=== PATIENT | female | born 2000 | race Caucasian/White ===

== ENCOUNTER 2025-09-20 08:08 | Inpatient (IN) ==
[2025-09-20] MEDS ORDERED: OXYTOCIN 30 UNITS/NSS 30 UNITS/500 ML BAG IV PRN (08:33)
[2025-09-20] MEDS ORDERED: CALCIUM CARBONATE 500 MG CHEWABLE TAB PO PRN (08:33)
[2025-09-20] MEDS ORDERED: LIDOCAINE 1% LOCAL 20 ML VIAL INFIL PRN (08:33)
[2025-09-20 09:01] LABS: Hematocrit (blood only) 39.6 % (37.0-47.0); Hemoglobin 13.6 g/dL (12.0-16.0); Mean Corpuscular Hemoglobin 30.0 pg (25.0-34.0); Mean Corpuscular Volume 87.4 fL (80.0-100.0); Platelet Count 207 K/uL (130-400); RDW Standard Deviation 42.0 fL (36.4-46.3); Red Blood Count 4.53 M/uL (4.20-5.40); White Blood Count 11.40 K/ul (4.8-10.8)
[2025-09-20] MEDS: LACTATED RINGER'S 1,000 ML IV PRN (11:00)
[2025-09-20] MEDS: OXYTOCIN 30 UNITS/NSS 30 UNITS/500 ML BAG IV PRN (11:01)
--- NOTE | 2025-09-20 17:45 | History & Physical Report ---
Date of Service September 20, 2025 Assessment & Plan (1) Supervision of normal first : Plan: Poornima is a 25-year-old currently at 37 weeks 1 day gestational age presents with premature rupture of membranes. No significant tractions on tocometer at time of presentation which was approximately 5 to 6 hours post rupture. Discussed findings and recommendation to start induction of labor with oxytocin. Discussed risk benefits the patient was agreeable. GBS negative. Epidural per request. Vitals within normal limits. (2) PROM (premature rupture of membranes): Admission and Anticipated Discharge Date Admission Date: September 20, 2025 History of Present Illness Primary Care Provider: Richard Noguera is a 25-year-old currently at 37 weeks 1 day gestational age presents with spontaneous rupture of membranes not in labor. Patient denying any regular or painful contractions or vaginal bleeding. Noted good movement. uncomplicated to date Allergies Allergy/AdvReac Type Severity Reaction Status Date / Time No Known Allergies Allergy Verified 09/18/25 10:03 Home Medications Medication Instructions Recorded Confirmed Type docusate sodium [Colace] PO 02/22/25 09/18/25 History ferrous sulfate PO 02/22/25 09/18/25 History 21-iron fu-folic acid PO 02/22/25 09/18/25 History [ Complete] escitalopram oxalate 10 mg tablet 10 mg PO DAILY #30 tabs 09/13/25 09/20/25 Rx Patient History Medical History (Updated 09/20/25 @ 17:43 by Kike Mcgee MD) Varicella vaccination Asthma Seasonal allergies Anxiety Surgical History S/P wisdom tooth extraction Family History Grandfather (Maternal) Diabetes Grandfather (Paternal) Diabetes Denies family history of Ovarian cancer Breast cancer Colorectal cancer Social History Smoking Status: Never smoker Second Hand Exposure: No; Do You Dip or Chew Tobacco: No; Tobacco Cessation Education Requested by Patient: No Hx Alcohol Use: No Hx Substance Use: No Preferred Language: Icelandic Communication Ability: Effective Carpet Jack Required: No Beliefs That Will Affect Care: None marital status: Single marital status details: charles Givens (25) [phone] Current Living Situation: Significant Other Current Living Situation Comment: [facility] current occupational status: student 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 Other Information That Helps Us Care for You: No Feels Safe at Home: Yes Safety Concerns: Feels Safe At This Time Assistive Devices: None Physical Exam Genitourinary: OB Exam Abdomen: + vertex Manual OB Exam: + cervical dilation (1.5), + cervical effacement 50%, + station -2 and + amniotic fluid (SROM) clear OB Exam Monitor Tracing: + external FHT monitor used, + external uterine monitor used, + category I and + normal FHT variability Results & Data Vital Signs (Past 12 Hours) Vital Signs Temp Pulse Resp BP 09/20/25 08:40 93 H 136/70 09/20/25 08:33 36.6 C 93 H 18 136/70 Coding Level of Care Code None Diagnoses Encounter for supervision of normal first in third trimester Z34.03 Trimester: third trimester premature rupture of membranes in third trimester, unspecified duration to onset of labor O42.913 PROM onset of labor timing: unspecified duration between rupture of membranes and onset of labor PROM gestational age: -third trimester (1) Supervision of normal first Trimester: third trimester Qualified Code(s): Z34.03 - Encounter for supervision of normal first , third trimester (2) PROM (premature rupture of membranes) PROM onset of labor timing: unspecified duration between rupture of membranes and onset of labor PROM gestational age: -third trimester Qualified Code(s): O42.913 - premature rupture of membranes, unspecified as to length of time between rupture and onset of labor, third trimester
[2025-09-20] MEDS: BUTORPHANOL TARTRATE 1 MG/ML VIAL IV ONE (19:37)
--- NOTE | 2025-09-20 20:31 | Labor Progress Brief Note ---
Date of Service September 20, 2025 Assessment & Plan Admission and Anticipated Discharge Date Admission Date: September 20, 2025 Results & Data Vital Signs (Past 12 Hours) Vital Signs Temp Pulse Resp BP 09/20/25 20:26 82 122/67 09/20/25 19:57 76 115/57 L 09/20/25 19:37 78 119/58 L 09/20/25 18:56 100 H 119/73 09/20/25 18:54 37.2 C 18 09/20/25 18:54 18 09/20/25 18:54 37.2 C 18 09/20/25 18:26 83 126/67 09/20/25 18:01 37.4 C 09/20/25 17:56 98 H 115/64 09/20/25 17:37 101 H 130/60 09/20/25 17:07 81 142/67 H 09/20/25 16:52 76 123/58 L 09/20/25 16:37 74 130/64 09/20/25 16:30 36.7 C 09/20/25 16:23 74 125/63 09/20/25 16:07 77 126/63 09/20/25 15:53 78 115/61 09/20/25 15:37 75 119/56 L 09/20/25 15:23 86 128/60 09/20/25 15:09 79 137/61 09/20/25 14:52 82 120/61 09/20/25 14:38 79 112/61 09/20/25 14:30 36.6 C 09/20/25 14:23 78 127/73 09/20/25 14:06 74 126/67 09/20/25 13:51 83 123/64 09/20/25 13:36 89 123/60 09/20/25 13:21 75 126/60 09/20/25 13:08 76 127/67 09/20/25 12:51 80 129/60 09/20/25 12:38 81 126/58 L 09/20/25 12:30 16 09/20/25 12:30 36.6 C 16 09/20/25 12:22 83 132/64 09/20/25 12:08 81 121/66 09/20/25 11:51 85 127/68 09/20/25 11:38 87 124/68 09/20/25 11:23 90 126/64 09/20/25 11:07 102 H 118/75 09/20/25 10:30 36.5 C 77 120/57 L 09/20/25 08:40 93 H 136/70 09/20/25 08:33 36.6 C 93 H 18 136/70 Coding
[2025-09-20] MEDS: ESCITALOPRAM OXALATE 10 MG TAB PO SCH (20:37)
[2025-09-21] MEDS ORDERED: HYDROCORTISONE ACETATE 25 MG SUPP PR PRN (06:45)
[2025-09-21] MEDS ORDERED: OXYTOCIN 30 UNITS/NSS 30 UNITS/500 ML BAG IV PRN (06:45)
[2025-09-21] MEDS ORDERED: DIPHTHER/TETAN/PERTUS Vaccine (Tdap, Adol/Adult) 0.5mL IM ONE (06:45)
--- NOTE | 2025-09-21 06:53 | Delivery Summary ---
Vaginal Delivery Summary Date of Service September 21, 2025 Vaginal Delivery Summary and 2nd Degree LAC Patient progressed to 10 cm dilated, 100% effaced, +2-3 station and pushed over intact perineum without anesthesia and delivered a viable with weight and Apgars pending. Head of the delivered without difficulty quickly followed by shoulders and body. had a good tone but without vigorous cry and a 30 second delayed cord clamping with with standard initial resuscitation procedures initiated. After spontaneous cry not noted the cord was then doubly clamped and cut and taken to the awaiting nursery staff. Cord segment and cord blood obtained. Attention turned deliver the placenta was delivered intact with three-vessel cord with gentle cord traction. On inspection perineum vagina and cervix there is noted to be a second-degree pe rineal laceration which was repaired with 3-0 Vicryl in the traditional crown stitch. Needle, sponge and instrument counts are correct at the completion of the case. Mother stable in the immediate postdelivery timeframe. taken to the nursery for extra respiratory support. No complications noted and blood loss per QBL and chart. [facility] Vaginal Delivery Charge Delivery Type Details: and 2nd Degree LAC
[2025-09-21] MEDS: BENZOCAINE 20% SPRY 85 APPLN/85 GM CAN EXT PRN (08:47)
[2025-09-21] MEDS: IBUPROFEN 600 MG TAB PO PRN (08:48)
[2025-09-21] MEDS: ACETAMINOPHEN 325 MG TAB PO PRN (12:07)
[2025-09-21] MEDS ORDERED: Nursing to Pharmacy Communication SCH (19:30)
[2025-09-21] MEDS: DOCUSATE SODIUM 100 MG CAP PO SCH (20:41)
[2025-09-21] MEDS: ESCITALOPRAM OXALATE 10 MG TAB PO SCH (20:41)
[2025-09-22 07:16] LABS: Hematocrit (blood only) 34.9 % (37.0-47.0); Hemoglobin 11.6 g/dL (12.0-16.0)
[2025-09-22] MEDS: FERROUS SULFATE 325 MG TAB PO SCH (07:35)
[2025-09-22] MEDS: PRENATAL VITAMIN 1 TAB PO SCH (07:35)
--- NOTE | 2025-09-22 07:47 | Obstetrical Progress Note ---
Date of Service September 22, 2025 Assessment & Plan (1) state: Recovered well, desires D/C home, instructions reviewed. Subjective Ambulation: ambulating normally Voiding: no voiding problems Passing Gas:: Yes Diet Tolerance:: regular diet Lochia:: Small Feeding Type:: breast feeding Physical Exam Constitutional WD/WN, vitals as above Eyes PERRL, conjunctivae normal, anicteric sclerae Neck normal visual inspection Respiratory normal respiratory effort and able to speak in complete sentences; no respiratory distress and no labored breathing Cardiovascular Rate/Rhythm: regular rate and regular rhythm Extremities: no edema Chest (Breasts) Chest: normal inspection of chest Gastrointestinal (Abdomen) Inspection/Auscultation: abdomen normal to inspection Soft, postgravid Psychiatric A+Ox3, euthymic affect Genitourinary OB Exam Abdomen: + fundal height Fundus: + firm and + relation to umbilicus (fundus just below umbilicus); not tender Results & Data Vital Signs (Past 12 Hours) Vital Signs Temp Pulse Resp BP Pulse Ox O2 Del Method 09/22/25 04:05 98.1 F 83 16 111/71 99 Room Air 09/21/25 23:06 98.8 F 78 16 109/67 98 Room Air 09/21/25 19:50 97.9 F 103 H 18 115/77
[2025-09-22] MEDS: ACETAMINOPHEN 500 MG TAB PO PRN (20:49)
[2025-09-22 23:00] VITALS: O2SAT 100
--- NOTE | 2025-09-23 05:50 | Obstetrical Progress Note ---
Date of Service September 23, 2025 Assessment & Plan (1) state: (2) examination following vaginal delivery: Plan 25 y/o ppd#2 s/p Feels well today. Vital signs stable Continue post- care Encourage ambulation and Pain controlled with ibuprofen Discharge home today, follow up with Dr. Mcgee in 6 weeks. Admission and Anticipated Discharge Date Admission Date: September 20, 2025 Supervising Physician Co-Signing Physician Notes Resident Physician Supervision Note: I interviewed and examined the patient. Discussed with Dr. Finch and agree with findings and plan as documented in the note. Any exceptions or clarifications are listed here: [ ] Documented By: Lynn Lenz MD, FACOG Subjective 25 y/o ppd #2 s/p Ambulation: ambulating normally Voiding: no voiding problems Passing Gas:: Yes Diet Tolerance:: regular diet Lochia:: Small Feeding Type:: breast and bottle feeding Current Pain Level: Resting comfortably this AM in NAD. Denies GALLO, CP, SOB, N/V/D, LE pain/swelling. Review of Systems Review of Systems: as above Physical Exam Physical Exam: General: patient resting comfortably, NAD, non-toxic in appearance, A&Ox4, answers questions appropriately. Skin: warm, dry, intact HEENT: NC/AT, anicteric sclera, conjunctiva without injection, moist mucus membranes. Heart: +S1/S2, regular, no m/r/g Lungs: equal air entry bilaterally, no rales/rhonchi/wheezes Abd: +BS, soft, NT/ND, uterine fundus firm at umbilicus Ext: warm, no clubbing/cyanosis or edema, Ivone's neg. Neuro: no focal neurological deficits Results & Data Vital Signs (Past 12 Hours) Vital Signs Temp Pulse Resp BP Pulse Ox O2 Del Method 09/22/25 22:59 36.6 C 78 16 113/68 100 Room Air 09/22/25 19:35 36.7 C 87 16 118/72 99 Room Air
[2025-09-23 10:06] VITALS: BP 115/74; PULSE 77; RESP 18; TEMP 97.7
== END 2025-09-23 13:05 | disposition home or self-care (01) | DRG 807 ==
LOC: OPB 08:08 → 4S1 08:11 → 4E2 09-21 09:15